=== PATIENT | female | born 1985 ===

== ENCOUNTER 2017-06-02 03:41 | Inpatient (IN) | payer OTHER ==
[2017-06-02] MEDS ORDERED: EPSOM SALT 454 GM TP PRN (05:34)
[2017-06-02] MEDS ORDERED: LR 1,000 ML IV PRN (05:34)
[2017-06-02] MEDS ORDERED: TERBUTALINE SULFATE 1 MG/ML VIAL IV PRN (05:34)
[2017-06-02] MEDS ORDERED: OLIVE OIL 118 ML BTL MISC PRN (05:34)
[2017-06-02] MEDS ORDERED: AMPICILLIN SODIUM 2 GM in NS 100 ML IV ONE (05:34)
[2017-06-02] MEDS ORDERED: OXYTOCIN/RINGERS LACTATE 1,000 ML IV PRN (05:34)
[2017-06-02] MEDS ORDERED: IBUPROFEN 600 MG TAB PO PRN (05:34)
[2017-06-02] MEDS ORDERED: AMMONIA AROMATIC 1 EACH AMP IH ONE (05:43)
[2017-06-02] MEDS ORDERED: OLIVE OIL 118 ML BTL ONE (05:43)
[2017-06-02] MEDS ORDERED: LIDOCAINE 1% 300 MG/30 ML SDV ONE (05:43)
[2017-06-02] MEDS ORDERED: TERBUTALINE SULFATE 1 MG/ML VIAL ONE (05:43)
[2017-06-02] MEDS ORDERED: MISOPROSTOL 200 MCG TAB ONE (05:44)
[2017-06-02] MEDS ORDERED: OXYTOCIN 10 UNIT/ML VIAL ONE (05:44)
--- NOTE | 2017-06-02 05:49 | OBPROG ---
OBG Labor Progress Note Assessment/Plan: Assessment: 31 y/o @ 39 1/7 wks in early labor Plan: Continue expectant management FHTs - Cat I tracing GBS positive, will start prophylactic abx Pt is considering nitrous at this time 06/02/17 05:46 Subjective: Pt is having pain with ctx's, pain 7-8/10. Denies any LOF or VB. Good FM noted. - SVE Dilation (cm): 4 Effacement (%): 75 Station: -2 [place] Current Contraction Pattern: Regular FHR (bpm): 140 FHR Pattern Variability: Moderate FHR Category: 1 Membranes: Intact ICD10 Worksheet Patient Problems: Problems Problem Status Onset GBS (group B Streptococcus carrier), +RV culture, currently Acute Active labor at term Acute
[2017-06-02 06:36] LABS: % IMMATURE GRANULYOCYTES 0.4 % (0.0-1.1); ABSOLUTE IMMATURE GRANULOCYTES 0.04 10^3/uL (0.00-0.10); ADD DIFF? NO; ADD MORPH? NO; ADD SCAN? NO; ATYPICAL LYMPHOCYTE FLAG 0 (0-99); FRAGMENT RBC FLAG 30 (0-99); HEMATOCRIT 36.9 % (38.0-47.0); LEFT SHIFT FLG 0 (0-99); LIPEMIA HEMOLYSIS FLAG 90 (0-99); MEAN CELL HEMOGLOBIN 29.6 pg (27.9-34.1); MEAN CELL HEMOGLOBIN CONCENTR. 35.2 g/dL (32.4-36.7); MEAN CELL VOLUME 84.1 fL (81.5-99.8); MEAN PLATELET VOLUME 11.4 fL (8.7-11.7); PLATELET CLUMPS FLAG 10 (0-99); PLATELET COUNT 168 10^3/uL (150-400); RED BLOOD CELL COUNT 4.39 10^6/uL (4.18-5.33); RED CELL DISTRIBUTION WIDTH 13.2 % (11.5-15.2)
--- NOTE | 2017-06-02 06:45 | GHP ---
[f rep st] HISTORY AND PHYSICAL DATE OF ADMISSION: 06/02/2017 ADMITTING DIAGNOSES: 1. Intrauterine at 39 weeks and 1 day. 2. Early labor. 3. Positive group beta strep. HISTORY OF PRESENT ILLNESS: The patient is a 31-year-old 3, para 1-0-1- 1, at 39 weeks and 1 day with estimated due date 05/19/2017, by last menstrual period 08/31/2016, and confirmed by a first-trimester ultrasound. The patient presents to Labor and Delivery with complaints of painful contractions now anywhere from 3-5 minutes. The pain is a 7-8/10. Denies any leakage of fluid or vaginal bleeding. Good movement noted. The patient is unsure if active labor because she had presented with her first at 10 cm. The patient has good care at [facility], and presented in her 1st trimester. Her son was born with club feet, but normal anatomy scan with this . She did receive Tdap. The patient did develop anemia of , and is tolerating iron. All genetic testing was negative. GBS culture is positive. PAST OB HISTORY: Termination of in 2009. She then had a full-term vaginal delivery in December 2014, viable male with club feet.; she was GBS was positive. 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 Age of menarche 12. Cycles every 28 days, 4-5 days. The patient denies history of abnormal Pap smears or any exposure to sexually transmitted diseases. PAST MEDICAL HISTORY: Remarkable for hypothyroidism. PAST SURGICAL HISTORY: Unremarkable. FAMILY HISTORY: Paternal grandmother with stroke. Paternal grandfather with Parkinson's. She reports a family history of paternal cousin and paternal uncle both with club feet. CURRENT MEDICATIONS: Thyroid medication and vitamin as well as iron. ALLERGIES: No known drug allergies. SOCIAL HISTORY: Patient is . She lives with her and their son. She denies any alcohol, tobacco or illicit drug use. LABS: O positive, antibody negative. Rubella immune. RPR nonreactive. Hepatitis B surface antigen negative. HIV negative. H and H 12/36.7. 1 hour Glucola 73. GBS culture is positive. REVIEW OF SYSTEMS: Ten-point review of systems negative. Pertinent positives noted in HPI. PHYSICAL EXAMINATION: VITAL SIGNS: On admission, vital signs are stable. Patient is afebrile. GENERAL: Well-nourished, well-developed female alert and oriented x3 in mild distress secondary to contractions. CARDIOVASCULAR: Regular rate and rhythm. LUNGS: Clear to auscultation bilaterally. ABDOMEN: Gravid, soft, nontender, nondistended. EXTREMITIES: Normal to inspection without edema. PELVIC: The patient was first checked by the nurse, noted to be about 3 cm, 60%, -2 station and intact, cephalic. She was rechecked almost 2 hours later and progressed to 4 cm, 70%, -2 station. heart tones are Category 1 strip with a heart rate baseline of 140 beats per minute. Positive accelerations. No decelerations. Moderate variability and patient is lesly every 3-4 minutes. ASSESSMENT AND PLAN: The patient is a 31-year-old 3, para 1-0-1-1, at 39 weeks and 1 day, who presents to labor and delivery in early labor. 1. Admit to Labor and Delivery for expectant management. 2. GBS culture is positive. Will treat with prophylactic antibiotics starting now. 3. The patient desires nitrous for pain relief at this time. 4. Anticipate normal spontaneous vaginal delivery. /[id number]/MODL MTDD
--- NOTE | 2017-06-02 08:21 | OBPROG ---
OBG Labor Progress Note Assessment/Plan: Assessment: 31yo with IUP @39-1wks Early labor GBS positive cat 1 FHR Tracing Plan: 06/02/17 08:20 cont PCN 2/2 GBS+ IA expectant management reassess 2hr/PRN Subjective: Pt doing well, FOB @ BS She reports pain 7/10 with contractions but denies any pain in between Desires NCB Objective: 06/02/17 06:15 Patient ABO/Rh O POSITIVE 06/02/17 06:15 VSS, normotensive, afebrile ctxs q 2-3min cat 1 FHR Tracing SVE: deferred Oxytocin Orders Assessment - Pre-Induction/Augmentation Assessment Gestational Age: 39 week(s) and 1 day(s) ICD10 Worksheet Patient Problems: Problems Problem Status Onset Active labor at term Acute GBS (group B Streptococcus carrier), +RV culture, currently Acute
[2017-06-02] MEDS: AMPICILLIN SODIUM 1 GM in NS 100 ML IV SCH ×4 (10:44→22:28)
[2017-06-02] MEDS ORDERED: fentaNYL 100 MCG/2 ML INJ IV ONE (13:30)
--- NOTE | 2017-06-02 16:04 | OBPROG ---
OBG Labor Progress Note Assessment/Plan: Assessment: 1400 31yo with IUP @39-1wks Early labor GBS positive cat 1 FHR Tracing Plan: 06/02/17 08:20 cont PCN 2/2 GBS+ consider augmentation pain management PRN anticipate 06/02/17 16:00 06/02/17 16:02 Subjective: pt doing well, she reports increasing pain and having pressure. desires to be examined at this time Objective: 06/02/17 06:15 Patient ABO/Rh O POSITIVE 06/02/17 06:15 VSS, normotensive, afebrile ctxs q 8-10 cat 1 FHR Tracing FfN Negative - SVE Dilation (cm): 3 Effacement (%): 50 Station: -2 Oxytocin Orders Assessment - Pre-Induction/Augmentation Assessment Gestational Age: 39 week(s) and 1 day(s) ICD10 Worksheet Patient Problems: Problems Problem Status Onset Active labor at term Acute GBS (group B Streptococcus carrier), +RV culture, currently Acute
--- NOTE | 2017-06-02 17:11 | OBPROG ---
OBG Labor Progress Note Assessment/Plan: Assessment: 31yo with IUP @39-1wks Early labor GBS positive cat 1 FHR Tracing Plan: 06/02/17 08:20 cont PCN 2/2 GBS+ start pitocin augmentation at this time reassess PRN pain management PRN 06/02/17 16:00 06/02/17 16:02 06/02/17 17:07 06/02/17 17:12 Subjective: pt doing well, she reports pain relief with fentanyl FOB @ BS Objective: 06/02/17 06:15 Patient ABO/Rh O POSITIVE 06/02/17 06:15 VSS, normotensive, afebrile ctxs q 8-10min FHR 135, +accels, no decels SVE 3/50/-2 - SVE Dilation (cm): 3 Effacement (%): 50 Station: -2 Oxytocin Orders Assessment - Pre-Induction/Augmentation Assessment Gestational Age: 39 week(s) and 1 day(s) ICD10 Worksheet Patient Problems: Problems Problem Status Onset Active labor at term Acute GBS (group B Streptococcus carrier), +RV culture, currently Acute
[2017-06-02] MEDS ORDERED: fentaNYL 100 MCG/2 ML INJ IVP ONE ×2 (17:16→20:00)
[2017-06-02] MEDS: OXYTOCIN/RINGERS LACTATE 500 ML IV SCH (17:39)
--- NOTE | 2017-06-02 23:21 | OBPROG ---
OBG Labor Progress Note Assessment/Plan: Assessment: 31yo with IUP @39-1wks Early labor GBS positive cat 1 FHR Tracing Plan: morphine sleep, orders placed will restart abx in AM with pitocin will reassess in AM/PRN consult with MD ORTEGA 06/02/17 23:25 Subjective: pt doing well, she reports mild pain with contractions; has been in different positions ( ball, sitting up, side lying, etc) states she is exhausted and would like to rest. Objective: 06/02/17 06:15 Patient ABO/Rh O POSITIVE 06/02/17 06:15 VSS, normotensive, afebrile cat 1 FHR tracing SVE: deferred Oxytocin Orders Assessment - Pre-Induction/Augmentation Assessment Gestational Age: 39 week(s) and 1 day(s) ICD10 Worksheet Patient Problems: Problems Problem Status Onset Active labor at term Acute GBS (group B Streptococcus carrier), +RV culture, currently Acute
[2017-06-02] MEDS ORDERED: PROMETHAZINE HCL 25 MG/ML INJ IVP ONE (23:27)
[2017-06-03] MEDS ORDERED: OXYTOCIN/RINGERS LACTATE 500 ML IV SCH (06:00)
[2017-06-03] MEDS: AMPICILLIN SODIUM 1 GM in NS 100 ML IV SCH ×2 (07:15→11:15)
[2017-06-03] MEDS: OXYTOCIN/RINGERS LACTATE 500 ML IV SCH (07:15)
--- NOTE | 2017-06-03 09:52 | OBPROG ---
OBG Labor Progress Note Assessment/Plan: Assessment: 31 y/o @ 39 2/7 wks in prodromal early labor Plan: AROM - clear fluid noted FHTs - Cat II tracing at this time with periods of minimal variability Will cont to closely monitor ther strip GBS positive, Amp x 6 Pt desires Fentanyl for pain control 06/03/17 09:54 Subjective: Pt is up ambulating. Having irregular ctx's and minimal pain. s/p morphine rest- slept all night. Objective: 06/02/17 06:15 Patient ABO/Rh O POSITIVE 06/02/17 06:15 - SVE Dilation (cm): 3 Effacement (%): 50 Station: -2 [place] Current Contraction Pattern: Irregular FHR (bpm): 140 FHR Pattern Variability: Moderate FHR Category: 2 (Throughout the night and this am, there are periods of minimal variability noted.) Membranes: AROM, Intact Amniotic Fluid Color: Clear Oxytocin Orders Assessment - Pre-Induction/Augmentation Assessment Gestational Age: 39 week(s) and 1 day(s) ICD10 Worksheet Patient Problems: Problems Problem Status Onset Active labor at term Acute GBS (group B Streptococcus carrier), +RV culture, currently Acute
[2017-06-03] MEDS ORDERED: fentaNYL 100 MCG/2 ML INJ ONE (10:26)
[2017-06-03] MEDS ORDERED: fentaNYL 100 MCG/2 ML INJ IVP PRN (10:51)
[2017-06-03] MEDS ORDERED: SIMETHICONE 80 MG TAB CHEW PO PRN (12:21)
[2017-06-03] MEDS ORDERED: HYDROCORTISONE 0.5% CREAM TP PRN (12:21)
--- NOTE | 2017-06-03 12:25 | OBDEL ---
Info Type: Vaginal GBS+: Yes Antibiotic Used for + GBS: Ampicillin Number of Antibiotic Doses Given: 6 Indications for Delivery: Spontaneous Labor (Prodromal ealry labor) Vaginal Delivery - Labor and Delivery Onset of Contractions Date: 06/01/17 Onset of Contractions Time: 23:30 Rupture of Membranes Date: 06/03/17 Rupture of Membranes Time: 09:30 Rupture of Membranes Type: Artificial Amniotic Fluid Color: Clear Dilation Complete Date: 06/03/17 Dilation Complete Time: 11:55 Placenta Delivery Date: 06/03/17 Placenta Delivery Time: 12:05 Total Hours of Labor: 36 Non-surgical Procedures: Amniotomy Laceration: Other (Specify) (Midline vag lac) Repair: 3-0, Vicryl Vaginal Sponge Count Correct: Yes Vaginal Needle Count Correct: Yes Vaginal Sweep Performed: Yes EBL: 300cc Delivery Events: None - Medications Labor Augmentation/Induction Methods Used: Pitocin Labor Augmentation/Induction Indication: Other (Specify) (Prodromal labor) Data [place] Delivery Date: 06/03/17 Delivery Time: 12:01 MARSHAL: 06/08/17 Gestational Age: 39 week(s) and 2 day(s) Sex of Infant: Female Score (1 Min): 9 Score (5 Min): 9 ICD10 Worksheet Patient Problems: Problems Problem Status Onset Active labor at term Acute GBS (group B Streptococcus carrier), +RV culture, currently Acute
[2017-06-03] MEDS: HYDROCODONE/APAP 5/325 TAB PO PRN ×2 (13:20→21:16)
[2017-06-03] MEDS: IBUPROFEN 600 MG TAB PO PRN (20:35)
[2017-06-03] MEDS: DOCUSATE SODIUM 100 MG CAP PO PRN (21:18)
[2017-06-04] MEDS: IBUPROFEN 600 MG TAB PO PRN ×2 (04:04→10:03)
--- NOTE | 2017-06-04 07:57 | OBPP ---
Progress Note Assessment/Plan: Assessment: s/p PPD # 1 - pt is stable Plan: Continue routine pp care Plan for d/c home in am 06/0506/04/17 07:55 Subjective: Pt seen and examined. Doing well, she is sore. Relief with Motrin. Mod lochia. Pt is OOB, richi regular diet, voiding without difficulty and passing flatus. NO BM yet. BF without difficulty. Objective: 06/02/17 06:15 Patient ABO/Rh O POSITIVE 06/02/17 06:15 Temp Pulse Resp BP Pulse Ox 36.3 C 55 L 14 104/64 96 06/03/17 19:45 06/03/17 19:45 06/03/17 19:45 06/03/17 19:45 06/03/17 19:45 Uterine Position/Fundal Height: Umbilicus -2 Uterine Tone: Firm Physical Exam - Physical Exam General Appearance: WD/WN, alert, no apparent distress Respiratory: lungs clear, normal breath sounds Cardiac/Chest: regular rate, rhythm Abdomen: normal bowel sounds, non-tender, soft, flatus (+) Extremities: non-tender, normal inspection Skin: normal color, warm/dry Neuro/Psych: alert, normal mood/affect, oriented x 3
[2017-06-04] MEDS: DOCUSATE SODIUM 100 MG CAP PO PRN (08:13)
[2017-06-04 08:48] VITALS: BP 106/72; PULSE 57; RESP 16; TEMP 98.2; O2SAT 98
--- NOTE | 2017-06-04 12:22 | OBGCSDC ---
General Delivery Information - General Info : 3 Para: 1 Abortions: 0 Delivery Physician/CNM: Trish Medina Admission Date: 06/02/17 Labs: Patient ABO/Rh O POSITIVE 06/02/17 06:15 Hct 36.9 % (38.0-47.0) L 06/02/17 06:15 Vaginal - Diagnosis Rupture of Membranes Type: Artificial Amniotic Fluid Color: Clear Laceration: Other (Specify) (Midline vag lac) Repair: 3-0, Vicryl Delivery Events: None - Operations/Procedures Non-surgical Procedures: Amniotomy L&D Analgesia/Anesthesia Type: Local, Nitrous - Hospital Course Antepartum: Uncomplicated. Intrapartum: Prodromal labor at 3-4 cm x 24 hrs. Morphine rested. Pitocin. AROM. Uncomplicated - Pushed three times. : Uncomplicated. - Delivery Non-surgical Procedures: Amniotomy L&D Analgesia/Anesthesia Type: Local, Nitrous [place] Data [place] Delivery Date: 06/03/17 Delivery Time: 12:01 MARSHAL: 06/08/17 Gestational Age: 39 week(s) and 3 day(s) Sex of Infant: Female Score (1 Min): 9 Score (5 Min): 9 Discharge Information - Discharge Information Discharge Medications: Ibuprofen, Vitamins Condition: Good Instruction/Follow Up: Four Weeks, Six Weeks Discharge Physician/CNM: Trish Medina
== END 2017-06-04 17:00 | disposition home or self-care (01) | DRG 775 ==
LOC: FLD 03:41 → OBSVTOIN 03:41 → FOB 06-03 16:00
PROVIDERS: ADMIT Obstetrics & Gynecology; ATTEND Obstetrics & Gynecology
PROC: 10907ZC Drainage of Amniotic Fluid, Therapeutic from Products of Conception, Via Natural or Artificial Opening (ICD-10-PCS; principal; 2017-06-02)
PROC: 0HQ9XZZ Repair Perineum Skin, External Approach (ICD-10-PCS; principal; 2017-06-02)
PROC: 10E0XZZ Delivery of Products of Conception, External Approach (ICD-10-PCS; principal; 2017-06-02)
DX: O70.0 First degree perineal laceration during delivery (principal); O99.820 Streptococcus B carrier state complicating pregnancy; O99.284 Endocrine, nutritional and metabolic diseases complicating childbirth; E03.9 Hypothyroidism, unspecified; O99.03 Anemia complicating the puerperium; Z3A.39 39 weeks gestation of pregnancy; Z37.0 Single live birth
CPT/HCPCS: J0290; J2550; J2590; J3010; J3105